=== PATIENT | female | born 1945 | race Caucasian/White ===

== ENCOUNTER 2021-04-23 07:43 | Inpatient (IN) | payer OTHER, SELFPAY ==
[~2021-04-23] VITALS: Ht 154.9 cm; Wt 60.3 kg
[2021-04-23] VITALS (8 sets, daily range): BP systolic 101–121; BP diastolic 60–66
--- NOTE | 2021-04-23 07:43 | NUR ---
Patient BIBA to bed 4 at this time.
--- NOTE | 2021-04-23 07:43 | NUR ---
Dr. Pérez at bedside evaluating patient.
[2021-04-23] MEDS ORDERED: NACL 0.9% 1,000 ML IV ONE (07:45)
[2021-04-23] MEDS ORDERED: PANTOPRAZOLE 40 MG INJ VIAL IVP ONE (07:50)
--- NOTE | 2021-04-23 08:06 | NUR ---
EMA SOLOMON COLLECTED BEDSIDE AND HANDED TO EMAIL PRODUCER EDILBERTO
--- NOTE | 2021-04-23 08:07 | NUR ---
BLOOD WORK COLLECTED FROM IV ESTABLISHED AND HANDED TO LABORER ORCHARD [facility]
--- NOTE | 2021-04-23 08:09 | NUR ---
75 Y/O F BIBA FROM HOME, PT BRANDT WAS HYPOTENSIVE, PT STATES SHE STARTED HAVING BLOOD IN DIARRHEA, BLACK TARRY STOLLS AND BLOOD IN EMESIS THIS MORNING. SKIN IS PINK/WARM/DRY; LUNGS CLEAR BL, DRIED DARK RED BLOOD IN NARES; HR EVEN AND TACHY; PT DENIES ANY FEVER, CP, SOB, OR COUGH AT THIS TIME; PATIENT STATES PAIN OF 7/10 AT THIS TIME; PATIENT POSITIONED FOR COMFORT; HOB ELEVATED; BEDRAILS UP X2; BED DOWN. ER MD MADE AWARE OF PT STATUS. PMH: HTN, LUNG CA, 2 STROKE NKA
[2021-04-23 08:12] LABS: BASOPHILS % (AUTO) 0.6 % (0.0-2.0); EOSINOPHILS % (AUTO) 0.3 % (0.0-4.0); HEMATOCRIT 27.4 % (36-48); HEMOGLOBIN 8.8 g/dL (12.0-16.0); LYMPHOCYTES # (AUTO) 1.5 K/uL (2.5-16.5); LYMPHOCYTES % (AUTO) 29.8 % (20.5-51.1); MEAN CORPUSCULAR HEMOGLOBIN 28 pg (27-31); MEAN CORPUSCULAR HGB CONC 32 g/dL (33-37); MONOCYTES # (AUTO) 0.4 K/uL (0.8-1.0); MONOCYTES % (AUTO) 8.5 % (1.7-9.3); NEUTROPHILS # (AUTO) 3.1 K/uL (1.8-7.7); NEUTROPHILS % (AUTO) 60.8 % (42.2-75.2); PLATELET COUNT (AUTO) 158 K/uL (140-450); RED BLOOD CELL COUNT(AUTO) 3.08 MIL/uL (4.20-5.40); WHITE BLOOD COUNT (AUTO) 5.2 K/uL (4.8-10.8)
--- NOTE | 2021-04-23 08:13 | NUR ---
X-Ray at bedside.
[2021-04-23 08:28] LABS: ALBUMIN 3.1 g/dL (3.4-5.0); ANION GAP 14.6 (8-16); ASPARTATE AMINOTRANSFERASE 20 U/L (15-37); CARBON DIOXIDE 23.4 mmol/L (21-32); CHLORIDE 107 mmol/L (98-107); CREATININE 0.9 mg/dL (0.6-1.3); GLUCOSE 144 mg/dL (74-106); SODIUM SERUM 140 mmol/L (136-145); TOTAL BILIRUBIN 0.4 mg/dL (0.0-1.0); UREA NITROGEN, BLOOD 48 mg/dL (7-18)
[2021-04-23] MEDS: PANTOPRAZOLE 80 MG in NACL 0.9% 100 ML IVP SCH ×2 (08:30→17:32)
[2021-04-23 08:43] LABS: PROTHROMBIN TIME 10.6 secs (10.8-13.4)
--- NOTE | 2021-04-23 09:07 | NUR ---
PARTH TEJEDA LOUIE DAUGHTER ASKED PT IF WE ARE ABLE TO GIVE INFORMATION TO DAUGHTER, PT STATED "I WILL , I WILL "
[2021-04-23] MEDS ORDERED: ONDANSETRON 4 MG/2 ML VIAL IVP ONE (09:10)
[2021-04-23] MEDS ORDERED: [UNRECOGNIZED DRUG - CODE] PO (09:11)
[2021-04-23] MEDS ORDERED: OSIM80TA PO (09:12)
[2021-04-23] MEDS ORDERED: LEVO0.155 PO (09:14)
[2021-04-23] MEDS ORDERED: APIX5TAB PO (09:14)
[2021-04-23] MEDS ORDERED: PROC-62 PO (09:14)
[2021-04-23] MEDS ORDERED: METO-744 PO (09:14)
[2021-04-23] MEDS ORDERED: POTASSIUM CHLORIDE 10 MEQ TABER PO PRN (09:25)
[2021-04-23] MEDS ORDERED: LORazepam 2 MG/ML VIAL IM/IVP PRN (09:25)
[2021-04-23] MEDS ORDERED: PROTHROMBIN COMPLEX HUMAN 500 UNITS KIT IV ONE (09:25)
[2021-04-23] MEDS ORDERED: DOCUSATE SODIUM 100 MG GELCAP PO PRN (09:25)
[2021-04-23] MEDS ORDERED: ZOLPIDEM 5 MG TAB PO PRN (09:25)
[2021-04-23] MEDS ORDERED: ONDANSETRON 4 MG/2 ML VIAL IVP PRN (09:25)
[2021-04-23] MEDS ORDERED: MAG SULF 2000 MG/WATER PREMIX 50 ML IV PRN (09:25)
[2021-04-23] MEDS ORDERED: SODIUM PHOS / POTASSIUM PHOS 1 PKT PDR PO PRN (09:25)
[2021-04-23] MEDS ORDERED: ACETAMINOPHEN 325 MG TAB PO PRN (09:25)
[2021-04-23 10:08] LABS: CHOL/HDL RATIO 2.2 (1-4.5); FREE T4 (FREE THYROXINE) 1.38 ng/dL (0.76-1.46); PHOSPHORUS 3.4 mg/dL (2.5-4.9); THYROID STIMULATING HORMONE 2.2 uIU/mL (0.34-3.74)
--- NOTE | 2021-04-23 11:07 | NUR ---
Patient will be admitted to care of EDEN GIRALDO. Admited to ICU. Will go to room 8. Belongings list completed. Report to THAIS BOLAND.
--- NOTE | 2021-04-23 11:11 | NUR ---
PT ARRIVED AT UNIT VIA GURNEY, PT AWAKE ALERT, ORIENTED X4, ABLE TO LET NEEDS KNOWN, TRANSFERRED PT TO BED 8. TOLERATED WELL, IV TO R AC 18G, PATENT INTACT, R FA 20G PATENT INTACT, L FA20G PATENT INTACT, L AC 18G PATENT INTACT, INFUSING PROTONIX DRIP @ 10ML/HR AND IV NS BOLUS, TOLERATING WELL, PT ON ROOM AIR, NO SOB NOTED, INITIAL ASSESSMENT DONE, ALL SAFETY PRECAUTION MET, CALL LIGHT WITHIN REACH, MRSA SWAB TAKEN, ORIENT PT TO ROOM, BED CALL LIGHT. STATED UNDERSTANDING, WILL CONTINUE TO MONITOR.
--- NOTE | 2021-04-23 12:30 | NUR ---
BLOOD TRANSFUSION STARTED, WILL CONTINUE TO MONITOR.
[2021-04-23] MEDS: NACL 0.9% 1,000 ML IV SCH ×2 (12:35→19:25)
--- NOTE | 2021-04-23 13:00 | NUR ---
PT COMPLAIN OF INTERMITTENT THROBBING PAIN ON LOWER ABDOMEN 10/10. WILL LOOK AT PRN PAIN MEDS.
[2021-04-23] MEDS: MORPHINE SULFATE 2 MG/ML SYR IVP PRN ×2 (13:05→17:33)
--- NOTE | 2021-04-23 13:05 | NUR ---
MORPHINE ADMINISTERED FOR ABDOMINAL PAIN. WILL CONTINUE TO MONITOR.
--- NOTE | 2021-04-23 13:13 | NUR ---
DR KING AT BEDSIDE ASSESSING PATIENT.
[2021-04-23] MEDS ORDERED: diphenhydrAMINE 50 MG/ML VIAL ONE (13:32)
[2021-04-23] MEDS ORDERED: MIDAZOLAM 5 MG/5 ML VIAL ONE (13:33)
[2021-04-23] MEDS ORDERED: fentaNYL citrate 0.05 MG/ML VIAL ONE (13:33)
--- NOTE | 2021-04-23 13:35 | NUR ---
PT DENIES ANY PAIN AT THE MOMENT. WILL CONTINUE TO MONITOR.
[2021-04-23] MEDS ORDERED: ERYTHROMYCIN 500 MG in NACL 0.9% 100 ML IV SCH (14:00)
--- NOTE | 2021-04-23 14:55 | NUR ---
BLOOD TRANSFUSION COMPLETED, PT TOLERATED WELL, NO DISTRESS NOTED, WILL CONTINUE TO MONITOR.
--- NOTE | 2021-04-23 15:00 | NUR ---
BED BATH CONDUCTED. PT IS IN BEDREST AND IN NO PAIN.
[2021-04-23] MEDS ORDERED: fentaNYL citrate 0.05 MG/ML VIAL IVP ONE (15:05)
[2021-04-23] MEDS ORDERED: MIDAZOLAM 2 MG/2 ML VIAL IVP ONE (15:05)
--- NOTE | 2021-04-23 15:50 | NUR ---
PATIENT HAS BEEN SCREENED AND CATEGORIZED HIGH NUTRITION RISK. PATIENT WILL BE SEEN WITHIN 1-2 DAYS OF ADMISSION. 04/23/21-04/24/21 RECEIVED FNS REFERRAL FOR NAUSEA, VOMITING AND DIARRHEA OVER [address]
[2021-04-23] MEDS ORDERED: ONDA8ODT PO (15:55)
[2021-04-23] MEDS ORDERED: LEVE500T9 PO (16:00)
[2021-04-23] MEDS ORDERED: SERT25TA PO (16:00)
[2021-04-23] MEDS ORDERED: ATA25 PO (16:00)
--- NOTE | 2021-04-23 16:30 | NUR ---
BLOOD TRANSFUSION STARTED, PT TOLERATED WELL, WILL CONTINUE TO MONITOR.
[2021-04-23] MEDS: FERROUS SULFATE 325 MG TABEC PO SCH (17:30)
[2021-04-23] MEDS: METOCLOPRAMIDE 10 MG/2 ML INJ VIAL IVP SCH ×2 (17:32→23:34)
--- NOTE | 2021-04-23 17:33 | NUR ---
PT C/O PAIN 10/, PAIN MEDICATION PER DR ORDER GIVEN, PT TOLERATE WELL, WILL CONTINUE TO MONITOR.
--- NOTE | 2021-04-23 18:50 | NUR ---
BLOOD TRANSFUSION COMPLETED, PT TOLERATED WELL, WILL CONTINUE TO MONITOR.
--- NOTE | 2021-04-23 19:15 | NUR ---
RECEIVED REPORT FROM DAY SHIFT RN FOR CONTINUITY OF CARE. AOX4, FRENCH SPEAKING, ABLE TO MAKE NEEDS KNOWN. SR ON MONITOR, AT 92 BEATS PER MINUTE. ON ROOM AIR, SPO2 AT 96. IV CLEAN, DRY AND INTACT, ON RIGHT ANTECUBITAL 18 G, RIGHT FOREARM 20 G, LEDT ANTECUBITAL 20 G, LEFT FOREARM 20 G. ON FULL LIQUID DIET. 2 VOIDS, 1 BM DURING DAY SHIFT. PAPER CORE MACHINE OPERATOR, PULSE OXIMETER, AND SAFETY MEASURES IN PLACE. BED LOCKED, BED IN LOW POSITION, HEAD OF BED AT 30 DEGREES. WILL CONTINUE TO MONITOR.
--- NOTE | 2021-04-23 19:17 | NUR ---
PER DR HARMON TO COMPLETE 2 UNITS BLOOD TRANSFUSION THEN CHECK FOR CBC. TO HOLD OFF ON THE OTHER 2 UNITS UNTIL BLOOD DRAW RESULT COMES BACK.
--- NOTE | 2021-04-23 19:30 | NUR ---
ENDORSED CARE TO CATALYST OPERATOR CHIEF NURSE FOR CONTINUITY OF CARE.
[2021-04-23] MEDS: KEPPRA 500 MG PO SCH (21:00)
[2021-04-23] MEDS: [UNRECOGNIZED DRUG - OTHER] PO SCH (21:00)
[2021-04-23] MEDS ORDERED: TAGRISSO 80 MG PO SCH (21:00)
[2021-04-23] MEDS ORDERED: NON-FORMULARY ITEM (Levetiracetam* (Keppra Xr*) 500 MG) PO SCH (21:00)
[2021-04-23] MEDS ORDERED: SELPERCATINIB PO SCH (21:00)
[2021-04-23 21:07] LABS: BASOPHILS % (AUTO) 0.8 % (0.0-2.0); EOSINOPHILS % (AUTO) 0.7 % (0.0-4.0); HEMATOCRIT 32.9 % (36-48); HEMOGLOBIN 10.7 g/dL (12.0-16.0); LYMPHOCYTES % (AUTO) 20.9 % (20.5-51.1); MEAN CORPUSCULAR HEMOGLOBIN 31 pg (27-31); MEAN CORPUSCULAR HGB CONC 33 g/dL (33-37); MEAN CORPUSCULAR VOLUME 93.3 fL (80-94); MONOCYTES # (AUTO) 0.5 K/uL (0.8-1.0); MONOCYTES % (AUTO) 11.5 % (1.7-9.3); NEUTROPHILS # (AUTO) 3.1 K/uL (1.8-7.7); NEUTROPHILS % (AUTO) 66.1 % (42.2-75.2); PLATELET COUNT (AUTO) 107 K/uL (140-450); RED BLOOD CELL COUNT(AUTO) 3.53 MIL/uL (4.20-5.40); RED CELL DISTRIBUTION WIDTH 17.7 % (11.6-13.7); WHITE BLOOD COUNT (AUTO) 4.7 K/uL (4.8-10.8)
[2021-04-23] MEDS: POLYETHYLENE GLYCOL 17 GM/PKT PO SCH (21:11)
--- NOTE | 2021-04-23 21:12 | NUR ---
PATIENT REFUSED HOME MEDICATION STATING SHE CANNOT SWALLOW. WILL NOTIFY PHYSICIAN. WILL CONTINUE TO MONITOR.
--- NOTE | 2021-04-23 21:22 | NUR ---
HGB 10.7 AND HCT 32.9 INCREASED FROM HGB 8.8 AND HCT 27.4. WILL CONTINUE TO MONITOR.
--- NOTE | 2021-04-23 22:24 | NUR ---
PATIENT APPEARS TO BE SLEEPING, DENIES PAIN, NO SIGNS OF DISTRESS. WILL CONTINUE TO MONITOR.
--- NOTE | 2021-04-23 23:35 | NUR ---
ADMINISTERED SCHEDULED MEDICATION. WILL CONTINUE TO MONITOR.
[2021-04-24] VITALS (10 sets, daily range): BP systolic 109–121; BP diastolic 59–70
--- NOTE | 2021-04-24 00:55 | NUR ---
PATIENT APPEARS TO BE SLEEPING, DENIES PAIN, NO SIGNS OF DISTRESS. WILL CONTINUE TO MONITOR.
--- NOTE | 2021-04-24 01:51 | NUR ---
PATIENT APPEARS TO BE SLEEPING, DENIES PAIN, NO SIGNS OF DISTRESS. WILL CONTINUE TO MONITOR.
--- NOTE | 2021-04-24 03:25 | NUR ---
PATIENT HAD EPISODE OF INCONTINENCE, HYGIENE CARE PROVIDED, LINEN CHANGED. CALL LIGHT WITHIN REACH. WILL CONTINUE TO MONITOR.
[2021-04-24] MEDS: PANTOPRAZOLE 80 MG in NACL 0.9% 100 ML IVP SCH (03:51)
[2021-04-24] MEDS: MORPHINE SULFATE 2 MG/ML SYR IVP PRN ×2 (04:53→18:24)
--- NOTE | 2021-04-24 04:55 | NUR ---
PATIENT HAD BM, HYGIENE CARE PROVIDED, LINEN CHANGED. COMPLAINTS OF PAIN, 8 OUT OF 10, MORPHINE GIVEN, WILL RECHECK PAIN LEVEL. WILL CONTINUE TO MONITOR.
[2021-04-24] MEDS: NACL 0.9% 1,000 ML IV SCH ×2 (05:25→13:22)
[2021-04-24 05:32] LABS: BASOPHILS % (AUTO) 0.6 % (0.0-2.0); EOSINOPHILS % (AUTO) 0.7 % (0.0-4.0); HEMATOCRIT 31.3 % (36-48); HEMOGLOBIN 10.2 g/dL (12.0-16.0); LYMPHOCYTES % (AUTO) 20.2 % (20.5-51.1); MEAN CORPUSCULAR HEMOGLOBIN 30 pg (27-31); MEAN CORPUSCULAR HGB CONC 33 g/dL (33-37); MEAN CORPUSCULAR VOLUME 92.8 fL (80-94); MONOCYTES # (AUTO) 0.5 K/uL (0.8-1.0); MONOCYTES % (AUTO) 9.6 % (1.7-9.3); NEUTROPHILS # (AUTO) 3.3 K/uL (1.8-7.7); NEUTROPHILS % (AUTO) 68.9 % (42.2-75.2); PLATELET COUNT (AUTO) 110 K/uL (140-450); RED BLOOD CELL COUNT(AUTO) 3.37 MIL/uL (4.20-5.40); RED CELL DISTRIBUTION WIDTH 17.6 % (11.6-13.7); WHITE BLOOD COUNT (AUTO) 4.7 K/uL (4.8-10.8)
--- NOTE | 2021-04-24 05:40 | NUR ---
PATIENT APPEARS TO BE SLEEPING, DENIES PAIN, NO SIGNS OF DISTRESS. WILL CONTINUE TO MONITOR.
[2021-04-24] MEDS: METOCLOPRAMIDE 10 MG/2 ML INJ VIAL IVP SCH ×3 (05:46→17:22)
[2021-04-24] MEDS: LEVOTHYROXINE 0.075 MG TAB PO SCH (05:46)
[2021-04-24 05:58] LABS: ALBUMIN 2.5 g/dL (3.4-5.0); ANION GAP 13.2 (8-16); ASPARTATE AMINOTRANSFERASE 17 U/L (15-37); CARBON DIOXIDE 20.9 mmol/L (21-32); CHLORIDE 111 mmol/L (98-107); CREATININE 0.7 mg/dL (0.6-1.3); GLUCOSE 84 mg/dL (74-106); MAGNESIUM 1.6 mg/dL (1.8-2.4); POTASSIUM 4.1 mmol/L (3.5-5.1); SODIUM SERUM 141 mmol/L (136-145); TOTAL BILIRUBIN 0.6 mg/dL (0.0-1.0); UREA NITROGEN, BLOOD 32 mg/dL (7-18)
--- NOTE | 2021-04-24 06:00 | NUR ---
ADMINISTERED SCHEDULED MEDICATION. PATIENT REQUEST THAT MEDICATIONS BE CRUSHED AND FEED WITH APPLE SAUCE. WILL CONTINUE TO MONITOR. WILL ENDORSE TO DAY SHIFT RN.
--- NOTE | 2021-04-24 06:15 | NUR ---
DR. TIMO CROSS. UPDATED ON PATIENT STATUS AND CONDITION. AWARE PATIENT'S HGB AND HCT STABILIZED. ABLE TO DOWNGRADE. WILL CONTINUE TO MONITOR. WILL ENDORSE TO DAY SHIFT RN.
--- NOTE | 2021-04-24 07:22 | NUR ---
ENDORSED TO PEDRO RN FOR CONTINUITY OF CARE.
--- NOTE | 2021-04-24 07:30 | NUR ---
RECEIVED REPORT FROM STATUARY PAINTER. AOX4, ABLE TO MAKE NEEDS KNOWN. WITH C/O LEFT SHOULDER PAIN 12/05, NO SOB ON ROOM AIR. IV TO R AC 18G, R FA 20G, L FA20G, L AC 18G, INFUSING PROTONIX DRIP @ 10ML/HR AND NS 100CC/HR. ALL SAFETY PRECAUTION MET, CALL LIGHT WITHIN REACH. WILL CONTINUE TO MONITOR.
[2021-04-24] MEDS: HYDROcodone/APAP 5/325 MG 1 TAB TAB PO PRN (07:47)
[2021-04-24] MEDS: METOPROLOL SUCCINATE 50 MG TABER PO SCH (08:36)
[2021-04-24] MEDS: FERROUS SULFATE 325 MG TABEC PO SCH ×2 (08:36→17:22)
[2021-04-24] MEDS: KEPPRA 500 MG PO SCH ×2 (08:36→20:14)
[2021-04-24] MEDS: [UNRECOGNIZED DRUG - OTHER] PO SCH ×2 (08:36→20:14)
[2021-04-24] MEDS: SERTRALINE 50 MG TAB PO SCH (08:36)
[2021-04-24] MEDS: POLYETHYLENE GLYCOL 17 GM/PKT PO SCH ×2 (08:36→20:27)
--- NOTE | 2021-04-24 08:40 | NUR ---
DUE MEDS GIVEN CRUSHED WITH APPLESAUCE, TOLERATED WELL
[2021-04-24] MEDS ORDERED: NON-FORMULARY ITEM (Metoprolol Succinate (Metoprolol Succinate Er) 25 MG) PO SCH (09:00)
[2021-04-24] MEDS ORDERED: OSIMERTINIB MESYLATE 80 MG PO SCH (09:00)
--- NOTE | 2021-04-24 11:30 | NUR ---
WITH LOOSE DARK BM. ALISSA CARE DONE
[2021-04-24 11:37] LABS: APPEARANCE,URINE CLEAR (CLEAR); BILIRUBIN,URINE NEGATIVE (NEGATIVE); BLOOD, URINE 1+ (NEGATIVE); COLOR,URINE YELLOW (YELLOW); LEUKOCYTE ESTERASE ,URINE TRACE (NEGATIVE); NITRITE, URINE NEGATIVE (NEGATIVE); UGLUCOSE NEGATIVE (NEGATIVE)
[2021-04-24 11:54] LABS: BARBITURATE, URINE NEGATIVE ng/ml (NEG <=200); BENZODIAZEPINE, URINE NEGATIVE ng/mL (NEG <=200); CANNABINOID, URINE NEGATIVE ng/mL (NEG <=50); COCAINE, URINE NEGATIVE ng/mL (NEG <=300); OPIATE, URINE POSITIVE ng/mL (NEG <=2000); PHENCYCLIDINE SCREEN,URINE NEGATIVE ng/mL (NEG <=25)
[2021-04-24 11:58] LABS: RBC,URINE 0-5 /HPF (0-5); WBC,URINE 0-5 /HPF (0-5)
--- NOTE | 2021-04-24 12:32 | NUR ---
DC PLANN[age] YRS OLD FEMALE PATIENT WAS ADMITTED FROM HOME WITH A DX OF UPPER GI BLEED. PATIENT HS A HX OF LUNG CA METS TO THE BRAIN, ANXIETY AND DEPRESSION. CXR SHOWED NO ACUTE CARDIOPULMONARY DISEASE. RAPID COVID TEST NEGATIVE. H/H 8.8/27.4 TRANSFUSED 2 UNITS PRBC. SEEN BY GI DR KING PERFORMED EGD WITH HEMOCLIP. DC PLAN TO GO HOME WHEN STABLE CM TO FOLLOW Addendum: 04/25/21 at 1448 by Salina Haynes RN DC PLANNING: SPOKE WITH PATIENT AND HER SISTER DISCUSSED THE DC PLAN TO SNF PER SISTER REFUSED TO SEND HER TO [facility] STATED SHE HAS FAMILY MEMBER TO GIVE HER A CARE. NOTIFIED DR GREENWOOD. [employer] [facility] CM TO FOLLOW Addendum: 04/25/21 at 1519 by Salina Haynes RN DC PLANNING: RECEIVED A CALL FROM [facility] SPOKE WITH ROBBIE [phone]. CAN ACCEPT PATIENT UPON DISCHARGE. CM TO FOLLOW
--- NOTE | 2021-04-24 13:17 | NUR ---
04/24/21 RD INITIAL ASSESSMENT COMPLETED PLEASE REFER TO NUTRITION ASSESSMENT UNDER CARE ACTIVITY FOR ESTIMATED NUTRITIONAL NEEDS. 1. CONTINUE PUREE DIET TOLERATED 2. RECOMMEND ENSURE BID 3. RD TO FOLLOW-UP 2-3 DAYS, HIGH RISK REVIEWED BY AURY BOUDRE[address] RD
--- NOTE | 2021-04-24 13:49 | NUR ---
PT RESTING IN BED. NO COMPLAINTS OF PAIN, NO SOB
--- NOTE | 2021-04-24 16:00 | NUR ---
PT'S FRIEND VISITING AT BEDSIDE. NO C/O PAIN, NO SOB
--- NOTE | 2021-04-24 18:05 | NUR ---
TRANSFER REPORT GIVEN TO AMBER BOLAND
--- NOTE | 2021-04-24 19:00 | NUR ---
TRANSFERRED TO TELE RM [id number]
--- NOTE | 2021-04-24 19:34 | NUR ---
RECEIVED BEDSIDE REPORT FROM AM SHIFT RN. RT AC 18G, LEFT FOREARM 20G. SKIN INTACT,A&O X4, FALL RISK, CONTINENT BUT PREFERS DIAPER. SAFETY MEASURES IN PLACE, CALL LIGHT WITHIN REACH
--- NOTE | 2021-04-24 20:30 | NUR ---
ADMINISTERED PTS SCHEDULED MEDS. TOLERATED WELL. PROVIDED EDUCATION ON MED AND ITS ADVERSE EFFECTS. PT VERBALIZED UNDERSTANDING. PT STABLE. WILL CONTINUE TO MONITOR.
[2021-04-25] VITALS: BP 101/54
[2021-04-25] MEDS: NACL 0.9% 1,000 ML IV SCH ×2 (01:32→11:40)
--- NOTE | 2021-04-25 01:40 | NUR ---
NEW IV SITE INSERTED RIGHT HAND 22G. PATENT. ALL OTHER IV SITES DISCONTINUED DUE TO INFILTRATION. COVERED WITH GAUZE AND TAPE. HUNG NS BAG RUNNING 100 MLS/HR.
[2021-04-25] MEDS: HYDROcodone/APAP 5/325 MG 1 TAB TAB PO PRN (02:59)
--- NOTE | 2021-04-25 03:00 | NUR ---
NORCO ADMINISTERED FOR PAIN. 12/05 PAIN .
[2021-04-25 04:00] VITALS: BP 100/57
[2021-04-25 06:35] LABS: BASOPHILS % (AUTO) 0.6 % (0.0-2.0); EOSINOPHILS # (AUTO) 0.1 K/uL (0-0.4); EOSINOPHILS % (AUTO) 1.5 % (0.0-4.0); HEMATOCRIT 28.7 % (36-48); HEMOGLOBIN 9.5 g/dL (12.0-16.0); LYMPHOCYTES # (AUTO) 0.8 K/uL (2.5-16.5); LYMPHOCYTES % (AUTO) 13.7 % (20.5-51.1); MEAN CORPUSCULAR HEMOGLOBIN 31 pg (27-31); MEAN CORPUSCULAR HGB CONC 33 g/dL (33-37); MEAN CORPUSCULAR VOLUME 92.7 fL (80-94); MONOCYTES # (AUTO) 0.4 K/uL (0.8-1.0); MONOCYTES % (AUTO) 7.2 % (1.7-9.3); NEUTROPHILS # (AUTO) 4.3 K/uL (1.8-7.7); PLATELET COUNT (AUTO) 100 K/uL (140-450); RED CELL DISTRIBUTION WIDTH 17.6 % (11.6-13.7); WHITE BLOOD COUNT (AUTO) 5.6 K/uL (4.8-10.8)
[2021-04-25 06:43] LABS: ALBUMIN 2.4 g/dL (3.4-5.0); ANION GAP 10.2 (8-16); ASPARTATE AMINOTRANSFERASE 14 U/L (15-37); CARBON DIOXIDE 22.7 mmol/L (21-32); CHLORIDE 107 mmol/L (98-107); CREATININE 0.6 mg/dL (0.6-1.3); GLUCOSE 90 mg/dL (74-106); MAGNESIUM 2.2 mg/dL (1.8-2.4); POTASSIUM 3.9 mmol/L (3.5-5.1); SODIUM SERUM 136 mmol/L (136-145); TOTAL BILIRUBIN 0.4 mg/dL (0.0-1.0); UREA NITROGEN, BLOOD 11 mg/dL (7-18)
[2021-04-25] MEDS: LEVOTHYROXINE 0.075 MG TAB PO SCH (06:48)
[2021-04-25] MEDS: METOCLOPRAMIDE 10 MG/2 ML INJ VIAL IVP SCH ×3 (06:48→11:46)
--- NOTE | 2021-04-25 07:34 | NUR ---
ENDORSED BEDSIDE REPORT TO AM SHIFT RN. PT STABLE.
--- NOTE | 2021-04-25 07:35 | NUR ---
RECEIVED REPORT FROM WHEAT SHIPPER. AOX4, ABLE TO MAKE NEEDS KNOWN. NO COMPLAINS , NO SOB ON ROOM AIR.BREATHING EVEN UNLABORED IV TO R AC 18G, R HAND 22G, POC DISCUSSED ALL SAFETY PRECAUTION IN PLACE, CALL LIGHT WITHIN REACH.
[2021-04-25 08:00] VITALS: BP 122/63
[2021-04-25] MEDS: SERTRALINE 50 MG TAB PO SCH (09:35)
[2021-04-25] MEDS: PANTOPRAZOLE 40 MG TABEC PO SCH (09:35)
[2021-04-25] MEDS: METOPROLOL SUCCINATE 50 MG TABER PO SCH (09:35)
[2021-04-25] MEDS: POLYETHYLENE GLYCOL 17 GM/PKT PO SCH (09:36)
[2021-04-25] MEDS: FERROUS SULFATE 325 MG TABEC PO SCH ×2 (09:37→16:51)
[2021-04-25] MEDS: KEPPRA 500 MG PO SCH ×2 (09:41→20:54)
[2021-04-25] MEDS: [UNRECOGNIZED DRUG - OTHER] PO SCH ×2 (09:42→20:54)
--- NOTE | 2021-04-25 09:45 | NUR ---
pt in bed no complains, no sod noted, got morning medication tolerated well, all safety measures on place calls light within reach
[2021-04-25 12:00] VITALS: BP 129/65
--- NOTE | 2021-04-25 12:00 | NUR ---
PATIENT IN BED NO COMPLAINS, NO SOD NOTED, PATIENT DENIES ANY PAIN VOMITING OR NAUSEA, PATIENT GOT CLEANED AND CHANGED, ALL NEED MEET AT THIS TIME, ALL SAFETY MEASURES ON PLACE, CALLS LIGHT WITHIN REACH
--- NOTE | 2021-04-25 13:15 | NUR ---
PATIENT IN BED NO COMPLAINS, NO SOD NOTED GARAGE LABORER SAJI TALKED TO THE PATIENT AND HER DAUGHTER ABOUT SNIF/REHAB DISCHARGE . DAUGHTER AND THE PATIENT REFUSE TO BE DISCHARGE TO SNIF. ALL SAFETY MEASURES ON PLACE CALLS LIGHT WITHIN REACH
--- NOTE | 2021-04-25 14:00 | NUR ---
PATIENT IN BED NO COMPLAINS, NO SOD NOTED, FAMILY MEMBER NEXT TO BED SIDE. ALL SAFETY MEASURES ON PLACE CALLS LIGHT WITHIN REACH
[2021-04-25] MEDS ORDERED: PATIENTS OWN TABLET PO SCH (15:00)
[2021-04-25 16:00] VITALS: BP 130/62
--- NOTE | 2021-04-25 16:02 | NUR ---
PATIENT IN BED NO COMPLAINS, NO SOD NOTED DR KING SAW THE PATIENT TODAY AND TALKED TO THE FAMILY AND THE PATIENT,THE DEAUGTER NEXT TO BED SIDE . ALL SAFETY MEASURES ON PLACE CALLS LIGHT WITHIN REACH
--- NOTE | 2021-04-25 17:58 | NUR ---
PATIENT IN BED NO COMPLAINS, NO SOD NOTED, ALL NEED MET AT THIS TIME ALL SAFETY MEASURES ON PLACE CALLS LIGHT WITHIN REACH
--- NOTE | 2021-04-25 19:20 | NUR ---
RECEIVED PT FROM DAY SHIFT RN FOR CONTINUITY OF CARE. PT IS STABLE.NO DISTRESS NOTED.CALL LIGHT WITHIN REACH. WILL CONTINUE TO MONITOR.
[2021-04-25 20:00] VITALS: BP 125/61
--- NOTE | 2021-04-25 21:00 | NUR ---
SCHEDULED MEDICATIONS GIVEN.PT TOLERATED WELL. NO COMPLAINS FROM PT AT THIS TIME.ALL PRECAUTIONS IN PLACE.CALL LIGHT WITHIN REACH. WILL CONTINUE TO MONITOR.
--- NOTE | 2021-04-25 23:00 | NUR ---
ROUNDS MADE. PT ASLEEP. VISIBLE CHEST RISE AND FALL NOTED.CALL LIGHT WITHIN REACH.WILL CONTINUE TO MONITOR.
--- NOTE | 2021-04-26 01:30 | NUR ---
PT IS SLEEPING. NO DISTRESS NOTED. CALL LIGHT WITHIN REACH. SAFETY PRECAUTIONS IN PLACE.WILL CONTINUE TO MONITOR.
--- NOTE | 2021-04-26 03:30 | NUR ---
PT CALLED AND ASKED TO BE CHANGED.ALISSA CARE PROVIDED.CALL LIGHT WITHIN REACH.
[2021-04-26 04:00] VITALS: BP 132/69
[2021-04-26] MEDS: LEVOTHYROXINE 0.075 MG TAB PO SCH (06:31)
--- NOTE | 2021-04-26 06:55 | NUR ---
PT IS STABLE. NO ACUTE EVENTS THROUGHOUT THE SHIFT.PT NOT IN ANY DISTRESS AND HAS NO COMPLAINS AT THIS TIME.ALL PT NEEDS ATTENDED. CALL LIGHT WITHIN REACH.WILL ENDORSE TO DAY SHIFT NURSE FOR CONTINUITY OF CARE.
[2021-04-26 06:59] LABS: ALBUMIN 2.8 g/dL (3.4-5.0); ANION GAP 14.4 (8-16); ASPARTATE AMINOTRANSFERASE 17 U/L (15-37); CARBON DIOXIDE 23.5 mmol/L (21-32); CHLORIDE 108 mmol/L (98-107); CREATININE 0.6 mg/dL (0.6-1.3); GLUCOSE 80 mg/dL (74-106); MAGNESIUM 2.1 mg/dL (1.8-2.4); POTASSIUM 3.9 mmol/L (3.5-5.1); SODIUM SERUM 142 mmol/L (136-145); TOTAL BILIRUBIN 0.5 mg/dL (0.0-1.0); UREA NITROGEN, BLOOD 8 mg/dL (7-18)
[2021-04-26 07:07] LABS: BASOPHILS % (AUTO) 0.8 % (0.0-2.0); EOSINOPHILS # (AUTO) 0.1 K/uL (0-0.4); EOSINOPHILS % (AUTO) 1.8 % (0.0-4.0); HEMATOCRIT 31.3 % (36-48); HEMOGLOBIN 10.6 g/dL (12.0-16.0); LYMPHOCYTES # (AUTO) 0.8 K/uL (2.5-16.5); LYMPHOCYTES % (AUTO) 17.5 % (20.5-51.1); MEAN CORPUSCULAR HEMOGLOBIN 31 pg (27-31); MEAN CORPUSCULAR HGB CONC 34 g/dL (33-37); MEAN CORPUSCULAR VOLUME 90.6 fL (80-94); MONOCYTES # (AUTO) 0.3 K/uL (0.8-1.0); MONOCYTES % (AUTO) 8.1 % (1.7-9.3); NEUTROPHILS # (AUTO) 3.1 K/uL (1.8-7.7); NEUTROPHILS % (AUTO) 71.8 % (42.2-75.2); PLATELET COUNT (AUTO) 125 K/uL (140-450); RED BLOOD CELL COUNT(AUTO) 3.45 MIL/uL (4.20-5.40); WHITE BLOOD COUNT (AUTO) 4.3 K/uL (4.8-10.8)
--- NOTE | 2021-04-26 07:32 | NUR ---
PT HAS BEEN ENDORSED TO DAY SHIFT NURSE FOR CONTINUITY OF CARE IN STABLE CONDITION
[2021-04-26 08:00] VITALS: BP 135/70
--- NOTE | 2021-04-26 08:30 | NUR ---
OFFER FLU VACCINE AND PATIENT FLATLY REFUSED. EXPLAINED RISK AND BENEFITS. PATIENT VERBALIZED UNDERSTANDING.
[2021-04-26] MEDS: SERTRALINE 50 MG TAB PO SCH (09:16)
[2021-04-26] MEDS: PANTOPRAZOLE 40 MG TABEC PO SCH (09:16)
[2021-04-26] MEDS: FERROUS SULFATE 325 MG TABEC PO SCH (09:16)
[2021-04-26] MEDS: METOPROLOL SUCCINATE 50 MG TABER PO SCH (09:16)
[2021-04-26] MEDS: [UNRECOGNIZED DRUG - OTHER] PO SCH (09:18)
[2021-04-26] MEDS: KEPPRA 500 MG PO SCH (09:20)
--- NOTE | 2021-04-26 10:50 | NUR ---
0720AM: PATIENT IS RESTING IN BED QUIETLY, AWAKE. NO ADDITIONAL DISTRESS NOTED. BED IN LOW AND LOCK POSITION. CALL LIGHT WITHIN REACH. STABLE CONDITION. WILL CONT TO MONITOR. 0800AM: EXPLAINED PLAN OF CARE AND PATIENT VERBALIZED UNDERSTANDING. PATIENT STATES SHE UNDERSTAND [place] BUT SPEAK LITTLE [place]. NO ADDITIONAL DISTRESS NOTED. PATIENT IS EATING HER BREAKFAST. 0916AM: MORNING MEDICATIONS GIVEN. PER PATIENT, HER DAUGHTER IS COMING TO PICK HER UP BECAUSE DR GREENWOOD TOLD HER SHES GOING HOME TODAY. DAUGHTER WILL BE HERE AT 10AM. 1011AM: DAUGHTER WHEELED THE PATIENT IN THE NURSES STATION AND STATING THAT THEY ARE LEAVING. NO ORDER FOR DC AT THIS TIME. EXPLAINED TO DAUGHTER AND PATIENT. BUT BOTH STATED THEY COULD NOT WAIT AND WILL LEAVE AMA. SPOKE WITH DR GREENWOOD AND REGARDING THE SITUATION. DAUGHTER AND PATIENT IS NOT WILLING TO WAIT FOR DC ORDER. EXPLAINED RISK AND BENEFITS OF LEAVING AMA. BOTH DECIDED TO WAIT FOR DC ORDER. BUT WANTS TO LEAVE SOON. 1021AM: PICKED UP HOME MEDICATION AT THE PHARMACY AND GIVEN TO THE PATIENT. THE REST OF HER HOME MEDICATION WAS GIVEN TO HER FRIEND AT EARLIER TIME OR DAY. 1044AM: EXPLAINED AND GAVE DC INSTRUCTIONS TO PATIENT AND DAUGHTER, BOTH VERBALIZED UNDERSTANDING. IV REMOVED FROM THE THE R HAND. IV CATH INTACT WHEN REMOVED. NO BLEEDING NOTED. COVER SITE WITH GAUZE AND SECURE WITH TAPE. 1050AM: PATIENT LEFT THE FACILITY IN A STABLE CONDITION. NO ADDITIONAL DISTRESS NOTED. ACCOMPANIED BY DAUGHTER AND PRIMARY NURSE. ALL PERSONAL BELONGINGS GIVEN BACK TO PATIENT AND DENIES MISSING ITEMS.
== END 2021-04-26 10:59 | disposition home or self-care (01) | DRG 377 ==
LOC: MED 07:43 → MIC 09:22 → EDBEDREQSVC 09:32 → MTU 04-24 19:15
PROVIDERS: ADMIT Family Medicine; ATTEND Family Medicine
PROC: 30233N1 Transfusion of Nonautologous Red Blood Cells into Peripheral Vein, Percutaneous Approach (ICD-10-PCS; 2021-04-23)
PROC: 0W3P8ZZ Control Bleeding in Gastrointestinal Tract, Via Natural or Artificial Opening Endoscopic (ICD-10-PCS; principal; 2021-04-23 14:35)
DX: K25.4 Chronic or unspecified gastric ulcer with hemorrhage (principal); N17.0 Acute kidney failure with tubular necrosis; C34.90 Malignant neoplasm of unspecified part of unspecified bronchus or lung; C71.9 Malignant neoplasm of brain, unspecified; D69.6 Thrombocytopenia, unspecified; E88.09 Other disorders of plasma-protein metabolism, not elsewhere classified; E83.51 Hypocalcemia; I10 Essential (primary) hypertension; E03.9 Hypothyroidism, unspecified; Z20.822 Contact with and (suspected) exposure to COVID-19; F32.A Depression, unspecified; F41.9 Anxiety disorder, unspecified; E78.5 Hyperlipidemia, unspecified; T45.515A Adverse effect of anticoagulants, initial encounter; D64.9 Anemia, unspecified; Z86.73 Personal history of transient ischemic attack (TIA), and cerebral infarction without residual deficits; Z92.21 Personal history of antineoplastic chemotherapy; Z79.899 Other long term (current) drug therapy; Z90.49 Acquired absence of other specified parts of digestive tract; Y92.89 Other specified places as the place of occurrence of the external cause
CPT/HCPCS: 36415; 36430; 71045; 80053; 80305; 81001; 82140; 82150; 83036; 83690; 83735; 83880; 84100; 84439; 84443; 84484; 85025; 85610; 85730; 86886; 86900; 86901; 86920; 87081; 93005; 96361; 96365; 96375; 99291; C9113; C9132; J1200; J1364; J2250; J2270; J2405; J2765; J3010; J3475; J7030; P9016; Q0092